=== PATIENT | female | born 1980 | race Caucasian/White ===

== ENCOUNTER 2017-09-07 06:37 | Emergency (ER) | payer OTHER ==
[~2017-09-07] VITALS: Ht 154.9 cm; Wt 79.4 kg
[~2017-09-07 06:37] MED LIST: ATARAX,VISTARIL10 MG PO; AUGMENTIN 500 M1 TAB PO; BACTRIM DS 8001 TA1 PO; CLARITIN-D 12 H1 TAB PO; KEFLEX500 MG PO; NORCO 325 MG-51 TAB PO; NORCO 5-325 TA1 EACH PO; PREDNISONE10 MG PO; PREDNISONE50 MG PO; Zofran4 MG PO
== END 2017-09-07 07:45 | disposition home or self-care (01) ==
LOC: ED 06:37
DX: H00.012 Hordeolum externum right lower eyelid (principal); F17.200 Nicotine dependence, unspecified, uncomplicated; Z98.51 Tubal ligation status; Z98.890 Other specified postprocedural states; Z88.1 Allergy status to other antibiotic agents

== ENCOUNTER 2018-01-21 18:01 | Emergency (ER) | payer OTHER ==
[~2018-01-21] VITALS: Ht 154.9 cm; Wt 74.8 kg
[2018-01-21] MEDS ORDERED: MEDROL DOSEPAK4 MG PO (19:11)
[2018-01-21] MEDS ORDERED: SPACE CHAMBER1 EACH MC (19:11)
[2018-01-21] MEDS ORDERED: PRILOSEC20 M1 PO (19:11)
[2018-01-21] MEDS ORDERED: PROAIR HFA8.5 GM INH (19:11)
== END 2018-01-21 19:16 | disposition home or self-care (01) ==
LOC: ED 18:01
DX: J40 Bronchitis, not specified as acute or chronic (principal); K21.9 Gastro-esophageal reflux disease without esophagitis; Z98.51 Tubal ligation status; Z88.1 Allergy status to other antibiotic agents

== ENCOUNTER 2020-05-02 21:13 | Emergency (ER) | payer MEDICAID ==
[~2020-05-02] VITALS: Ht 152.4 cm; Wt 90.7 kg
[~2020-05-02 21:13] MED LIST changes: +MEDROL DOSEPAK4 MG PO; +PRILOSEC20 M1 PO; +PROAIR HFA8.5 GM INH; +SPACE CHAMBER1 EACH MC
[2020-05-02] MEDS ORDERED: NORCO 5-325 TA1 EACH PO (23:11)
[2020-05-02] MEDS ORDERED: DOXYCYCLINE HY100 M3 PO (23:11)
== END 2020-05-03 00:13 | disposition home or self-care (01) ==
LOC: ED 21:13
DX: L73.2 Hidradenitis suppurativa (principal); K21.9 Gastro-esophageal reflux disease without esophagitis; Z79.899 Other long term (current) drug therapy; F17.200 Nicotine dependence, unspecified, uncomplicated; Z88.8 Allergy status to other drugs, medicaments and biological substances

== ENCOUNTER 2021-11-22 10:48 | Emergency (ER) | payer SELFPAY ==
[~2021-11-22] VITALS: Wt 86.2 kg
[~2021-11-22 10:48] MED LIST changes: +DOXYCYCLINE HY100 M3 PO
[2021-11-22 11:40] LABS: BASO % 0.4 % (0.0-1.0); HEMATOCRIT 43.6 % (37.0-47.0); LYMPH # 1.3 10*3/uL (1.3-4.4); MEAN CELL VOLUME 87.6 fl (81.0-99.0); MEAN CORPUSCULAR HGB 28.3 pg (27.0-31.0); MEAN CORPUSCULAR HGB CONC 32.3 g/dl (33.0-37.0); MEAN PLATELET VOLUME 10.3 fl (9.6-12.3); MONO # 0.9 10*3/uL (0.1-1.0); MONO % 19.7 % (3.0-9.0); NEUT # 2.4 10*3/uL (2.3-7.9); NEUT % 51.5 % (47.0-73.0); PLATELET COUNT AUTOMATED 276 10*3/uL (130-400); RED BLOOD COUNT 4.98 10*6/uL (4.10-5.10); RED CELL DISTRI WIDTH 13.5 % (0-14.5); WHITE BLOOD COUNT 4.7 10*3/uL (4.8-10.8)
[2021-11-22 11:55] LABS: ALBUMIN 3.7 gm/dl (3.1-4.5); ALKALINE PHOSPHATASE 93 U/L (45-117); BUN 5 mg/dl (7-24); CHLORIDE 105 mmol/L (98-107); CREATININE 0.66 mg/dL (0.55-1.02); POTASSIUM 3.8 mmol/L (3.5-5.1); SGOT/AST 18 IU/L (3-35); SGPT/ALT 36 U/L (12-78); SODIUM 136 mmol/L (136-145); TOTAL PROTEIN 7.2 gm/dL (6.4-8.2)
== END 2021-11-22 12:30 | disposition home or self-care (01) ==
LOC: ED 10:48
PROVIDERS: Nurse Practitioner Family
DX: U07.1 COVID-19 (principal); Z88.1 Allergy status to other antibiotic agents

== ENCOUNTER → 2023-02-03 | Outpatient (CLI) | payer BC | END | disposition home or self-care (01) | LOC: RAD 11:17 | PROVIDERS: ATTEND Nurse Practitioner | DX: M47.22 Other spondylosis with radiculopathy, cervical region (principal); M25.78 Osteophyte, vertebrae; M48.02 Spinal stenosis, cervical region; M47.816 Spondylosis without myelopathy or radiculopathy, lumbar region; M25.711 Osteophyte, right shoulder ==

== ENCOUNTER 2024-03-16 16:16 | Emergency (ER) | payer OTHER, BC ==
[~2024-03-16] VITALS: Ht 152.4 cm; Wt 83.9 kg
[2024-03-16] MEDS ORDERED: Acetaminophen/Hydrocodone 5 MG/325 MG TABLET PO ONE (17:10)
[2024-03-16] MEDS ORDERED: NAPROSYN500 MG PO (18:01)
[2024-03-16] MEDS ORDERED: NAPROXEN 250 MG TAB PO ONE (18:05)
== END 2024-03-16 18:12 | disposition home or self-care (01) ==
LOC: ED 16:16
DX: S46.911A Strain of unspecified muscle, fascia and tendon at shoulder and upper arm level, right arm, initial encounter (principal); Z88.1 Allergy status to other antibiotic agents; Z98.890 Other specified postprocedural states; Z90.49 Acquired absence of other specified parts of digestive tract; Z98.51 Tubal ligation status; X50.0XXA Overexertion from strenuous movement or load, initial encounter; Y93.89 Activity, other specified; Y92.512 Supermarket, store or market as the place of occurrence of the external cause; Y99.0 Civilian activity done for income or pay

== ENCOUNTER 2024-03-18 16:59 | Emergency (ER) | payer OTHER, BC ==
[~2024-03-18] VITALS: Ht 152.4 cm; Wt 83.9 kg
[~2024-03-18 16:59] MED LIST changes: +NAPROSYN500 MG PO
[2024-03-18] MEDS ORDERED: MELOXICAM15 MG PO ×2 (18:37)
== END 2024-03-18 18:45 | disposition home or self-care (01) ==
LOC: ED 16:59
DX: S60.221A Contusion of right hand, initial encounter (principal); Z88.1 Allergy status to other antibiotic agents; Z98.890 Other specified postprocedural states; Z90.49 Acquired absence of other specified parts of digestive tract; Z98.51 Tubal ligation status; X50.0XXA Overexertion from strenuous movement or load, initial encounter; Y93.89 Activity, other specified; Y92.89 Other specified places as the place of occurrence of the external cause; Y99.8 Other external cause status

== ENCOUNTER → 2025-09-19 | Outpatient (CLI) | payer BC ==
[~2025-09-19] MED LIST changes: +MELOXICAM15 MG PO
== END | disposition home or self-care (01) ==
LOC: RAD 11:40
PROVIDERS: ATTEND Nurse Practitioner
DX: Z01.818 Encounter for other preprocedural examination (principal)